=== PATIENT | male | born 1985 | race African-American/Black ===

== ENCOUNTER 2018-06-30 17:06 | Emergency (ER) | payer BC ==
[~2018-06-30] VITALS: Ht 193 cm; Wt 126.0 kg
[2018-06-30] MEDS ORDERED: KETOROLAC 30MG/ML VIAL IM ONE (20:45)
[2018-06-30 20:49] VITALS: BP 153/108
== END 2018-06-30 22:23 | disposition home or self-care (01) ==
LOC: ER 17:06
DX: M54.5 Low back pain (principal); M25.551 Pain in right hip; F12.10 Cannabis abuse, uncomplicated; Z87.891 Personal history of nicotine dependence; Z87.828 Personal history of other (healed) physical injury and trauma
CPT/HCPCS: 73522; 96372; 99283; J1885